=== PATIENT | male | born 1940 | race Caucasian/White ===

== ENCOUNTER 2016-08-08 15:38 | Outpatient (CLI) | payer MEDICARE ==
[2016-05-13 13:22] VITALS: BP 129/69
== END 2016-08-08 15:40 ==
LOC: RT 15:38
PROVIDERS: ATTEND Family Medicine
DX: I49.9 Cardiac arrhythmia, unspecified (principal)

== ENCOUNTER 2017-05-04 09:50 | Outpatient (CLI) | payer MEDICARE ==
[2016-05-13 13:22] VITALS: BP 129/69
[2017-05-04 10:53] LABS: eGFR (African) > 60; eGFR (Non-African) > 60
== END 2017-05-04 12:20 ==
LOC: LAB 09:50
PROVIDERS: ATTEND Internal Medicine Cardiovascular Disease
DX: I42.8 Other cardiomyopathies (principal)
CPT/HCPCS: 36415; 80053

== ENCOUNTER 2018-05-17 09:25 | Outpatient (CLI) | payer MEDICARE ==
[2016-05-13 13:22] VITALS: BP 129/69
[2018-05-17 10:26] LABS: eGFR (Non-African) > 60
[2018-05-17 10:33] LABS: MEAN CORPUSCULAR HEMOGLOBIN 31.5 pg (28.0-34.0)
[2018-05-17 10:34] LABS: BASOPHILS % 0.3 (0.0-1.5); EOSINOPHILS % 3.9 % (0.0-6.8); MONOCYTES % 9.9 % (0.0-11.0); NEUTROPHILS # 4.8 # k/uL (1.4-7.7)
== END 2018-05-17 09:26 ==
LOC: LAB 09:25
PROVIDERS: ATTEND Internal Medicine Cardiovascular Disease
DX: I42.8 Other cardiomyopathies (principal); I49.3 Ventricular premature depolarization; I10 Essential (primary) hypertension; E11.9 Type 2 diabetes mellitus without complications; R79.9 Abnormal finding of blood chemistry, unspecified
CPT/HCPCS: 36415; 80053; 80061; 85025

== ENCOUNTER 2018-07-30 09:35 | Outpatient (CLI) | payer MEDICARE ==
[2016-05-13 13:22] VITALS: BP 129/69
--- NOTE | 2018-07-30 11:30 | Diagnostic Imaging Report ---
DAMIÁN EVANS [facility] [id number] [facility] [address] [place] [address]. 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 Normal homogeneous echogenicity centrally. No mass. No cyst. Normal flow centrally on color analysis. Normal Doppler waveforms. Epididymitis demonstrates a 6 mm cyst. No abnormal fluid collection surrounding the testicle. Left testicle measures 3.1 x 5.1x 1.5 cm. Normal homogeneous echogenicity centrally. No mass. No cyst. Normal flow centrally on color analysis. Normal Doppler waveforms. Epididymis without gross irregularity. Large complex fluid collection adjacent to the left testicle measuring greater than 5.9 cm diameter. Impression: No intratesticular mass or cyst. No torsion. Large left peritesticular complex fluid collection - by report patient had hydrocele drained last week. Findings suggestive for infectious process/etiology. Urology consultation recommended if not already obtained. 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
== END 2018-07-30 09:37 ==
LOC: RAD 09:35
PROVIDERS: ATTEND Family Medicine
DX: N43.1 Infected hydrocele (principal)
CPT/HCPCS: 76870

== ENCOUNTER 2019-05-19 09:26 | Outpatient (CLI) | payer MEDICARE ==
[2016-05-13 13:22] VITALS: BP 129/69
[2019-05-19 10:05] LABS: eGFR (Non-African) 53
[2019-05-19 10:06] LABS: HDL 76 mg/dL (>40)
== END 2019-05-19 09:31 ==
LOC: LAB 09:26
PROVIDERS: ATTEND Internal Medicine Cardiovascular Disease
DX: I42.8 Other cardiomyopathies (principal); I49.3 Ventricular premature depolarization; I10 Essential (primary) hypertension
CPT/HCPCS: 36415; 80053; 80061; 85027